=== PATIENT | male | born 1960 | race Caucasian/White ===

== ENCOUNTER → 2016-07-02 | Outpatient (CLI) | payer OTHER ==
[~2016-07-02] MED LIST: ALEVE 220MG220 MG PO; XANAX .25M0.25 MG/TA PO
[2016-07-02 10:27] LABS: HEMATOCRIT 46.5 % (42.0-52.0)
== END ==
LOC: COL.LAB 06-18 08:15
PROVIDERS: Family Medicine
DX: E83.118 Other hemochromatosis (principal)

== ENCOUNTER → 2016-07-09 | Outpatient (CLI) | payer OTHER | LOC: COL.LAB 07:51 | DX: E83.118 Other hemochromatosis (principal) ==

== ENCOUNTER → 2017-03-03 | Outpatient (CLI) | payer OTHER ==
[2017-03-03 13:49] LABS: HEMOGLOBIN 15.6 g/dl (13.5-18.0)
[2017-03-03 13:54] LABS: HEMATOCRIT 45.7 % (42.0-52.0)
== END ==
LOC: COL.LAB 12:51
PROVIDERS: Family Medicine
DX: E83.119 Hemochromatosis, unspecified (principal)

== ENCOUNTER → 2017-03-24 | Outpatient (CLI) | payer OTHER ==
[2017-03-24 11:35] LABS: HEMATOCRIT 46.6 % (42.0-52.0)
== END ==
LOC: COL.LAB 03-17 16:03
PROVIDERS: Family Medicine
DX: E83.119 Hemochromatosis, unspecified (principal); Z79.899 Other long term (current) drug therapy

== ENCOUNTER → 2017-04-07 | Outpatient (CLI) | payer OTHER ==
[2017-04-07 08:50] LABS: HEMATOCRIT 45.9 % (42.0-52.0); HEMOGLOBIN 15.7 g/dl (13.5-18.0)
== END ==
LOC: COL.LAB
PROVIDERS: Family Medicine
DX: E83.119 Hemochromatosis, unspecified (principal)

== ENCOUNTER 2020-01-25 15:45 | Outpatient (RCR) | payer OTHER | END 2020-03-25 11:38 | disposition home or self-care (01) | LOC: WSC 15:45 | DX: M79.2 Neuralgia and neuritis, unspecified (principal) ==